=== PATIENT | female | born 1935 | race Caucasian/White ===

== ENCOUNTER 2018-09-13 09:11 | Emergency (ER) | payer MEDICARE, OTHER ==
[~2018-09-13] VITALS: Ht 152.4 cm; Wt 43.6 kg
[2018-09-13 09:45] LABS: BASOPHILS # (AUTO) 0.1 X10'3 (0-0.2); BASOPHILS % (AUTO) 0.6 % (0-1); EOSINOPHILS # (AUTO) 0.1 X10'3 (0-0.9); HEMATOCRIT 42.7 % (35.0-45.0); HEMOGLOBIN 14.1 g/dl (12.0-16.0); LYMPHOCYTES # (AUTO) 1.3 X10'3 (1.1-4.8); LYMPHOCYTES % (AUTO) 9.4 % (21-51); MEAN CORPUSCULAR HEMOGLOBIN 29.7 PG (27.0-31.0); MEAN PLATELET VOLUME 6.7 FL (7.4-10.4); MONOCYTES # (AUTO) 0.4 X10'3 (0-0.9); MONOCYTES % (AUTO) 2.7 % (2-12); NEUTROPHILS # (AUTO) 11.8 X10'3 (1.8-7.7); NEUTROPHILS % (AUTO) 86.3 % (42-75); PLATELET COUNT 361 X10'3 (140-440); RED BLOOD COUNT 4.74 X10'6 (4.20-5.60); RED CELL DISTRIBUTION WIDTH 14.1 % (11.5-14.5); WHITE BLOOD COUNT 13.6 X10'3 (4.5-11.0)
[2018-09-13 09:58] LABS: INR 0.9 INR; PROTHROMBIN TIME 9.6 SECONDS (9.0-12.0)
[2018-09-13 10:01] LABS: ALANINE AMINOTRANSFERASE 19 U/L (12-78); ALBUMIN 4.1 G/DL (3.4-5.0); ALBUMIN/GLOBULIN RATIO 1.1 (1.1-1.5); ALKALINE PHOSPHATASE 101 IU/L (46-116); ANION GAP 13 (8-16); ASPARTATE AMINO TRANSFERASE 16 U/L (10-37); BILIRUBIN,TOTAL 0.5 MG/DL (0.1-1.0); BLOOD UREA NITROGEN 16 MG/DL (7-18); BUN/CREATININE RATIO 18.4 (6.6-38.0); CALCIUM 10.5 MG/DL (8.5-10.1); CHLORIDE 96 MMOL/L (99-107); CREATININE 0.87 MG/DL (0.40-0.90); GLUCOSE 104 MG/DL (70-104); LIPASE 129 U/L (73-393); POTASSIUM 3.6 MMOL/L (3.5-5.1); SODIUM 135 MMOL/L (135-145); TOTAL CARBON DIOXIDE 26.4 MMOL/L (24-32); TOTAL PROTEIN 7.8 G/DL (6.4-8.2); eGFR 62 ML/MIN
[2018-09-13 11:00] LABS: CLARITY,URINE CLOUDY (Clear); COLOR,URINE YELLOW (Yellow); GLUCOSE, URINE NEGATIVE (Neg); KETONES,URINE TRACE mg/dl (Neg); LEUKOCYTE ESTERASE ,URINE SMALL (Neg); NITRITES, URINE POSITIVE (Neg); OCCULT BLOOD,URINE TRACE-LYSED (Neg); PROTEIN,URINE NEGATIVE (Neg); UROBILINOGEN,URINE 0.2 E.U/dL (0.2-1.0)
[2018-09-13 11:01] LABS: UA COLLECTION TYPE FOLEY CATH
[2018-09-13 11:06] LABS: BACTERIA,URINE 4+ /HPF (Neg); RBC,URINE 0-2 /HPF (0-2); SQUAMOUS EPITHELIAL CELL,UR FEW /LPF (FEW); WBC,URINE 50-100 /HPF (0-4)
[2018-09-13] MEDS ORDERED: ondansetron 4mg rapidly disintigrating tab PO ONE (11:15)
[2018-09-13] MEDS ORDERED: fentaNYL/PF 50MCG/1 ML 2ML syringe IV ONE ×2 (11:45→12:50)
[2018-09-13] MEDS ORDERED: CefTRIAXone/D5W-Rocephin 1gm 50 ML IV ONE (11:45)
[2018-09-13] MEDS ORDERED: normal saline 1000ML IV soln IVB ONE (11:45)
[2018-09-13] MEDS ORDERED: NITR100C6 PO (12:11)
[2018-09-13] MEDS ORDERED: iohexol 350MG/ML 100ml bottle IV ONE (13:32)
[2018-09-13] MEDS ORDERED: HYDR-4353 PO (14:51)
[2018-09-13 15:09] VITALS: BP 120/73
[2018-09-13] MEDS ORDERED: sucralfate 1gm/10ml UD suspension PO STA (15:18)
[2018-09-13] MEDS ORDERED: mag hydrox/Alum hydrox/simeth 30ml oral suspension PO ONE (15:20)
[2018-09-13] MEDS ORDERED: LIDOcaine Viscous 15ml cup PO ONE (15:20)
[2018-09-13] MEDS ORDERED: ondansetron/PF 4mg/2ml inj IV ONE (15:20)
[2018-09-13] MEDS ORDERED: SUCR1TAB34 PO (15:20)
== END 2018-09-13 16:06 | disposition home or self-care (01) ==
LOC: ER 09:12
DX: S32.038A Other fracture of third lumbar vertebra, initial encounter for closed fracture (principal); S22.088A Other fracture of T11-T12 vertebra, initial encounter for closed fracture; S32.018A Other fracture of first lumbar vertebra, initial encounter for closed fracture; N39.0 Urinary tract infection, site not specified; Z79.899 Other long term (current) drug therapy; X58.XXXA Exposure to other specified factors, initial encounter; Y93.89 Activity, other specified; Y92.89 Other specified places as the place of occurrence of the external cause; Y99.9 Unspecified external cause status
CPT/HCPCS: 36415; 71275; 72070; 74177; 80053; 81001; 83690; 85025; 85610; 87077; 87088; 87186; 96365; 96375; 96376; 99284; J0696; J3010; J7030; P9612; Q9967

== ENCOUNTER 2018-09-18 20:03 | Inpatient (IN) | payer MEDICARE, OTHER ==
[~2018-09-18] VITALS: Ht 151.1 cm; Wt 41.4 kg
[~2018-09-18 20:03] MED LIST: HYDR-4353 PO; NITR100C6 PO; SUCR1TAB34 PO
[2018-09-18] MEDS ORDERED: normal saline 1000ml 1,000 ML IV ONE (20:21)
[2018-09-18 20:57] LABS: BASOPHILS % (AUTO) 0.4 % (0-1); EOSINOPHILS # (AUTO) 0.1 X10'3 (0-0.9); EOSINOPHILS % (AUTO) 1.4 % (0-6); HEMATOCRIT 36.1 % (35.0-45.0); HEMOGLOBIN 12.2 g/dl (12.0-16.0); LYMPHOCYTES # (AUTO) 0.9 X10'3 (1.1-4.8); LYMPHOCYTES % (AUTO) 12.7 % (21-51); MEAN CORPUSCULAR HEMOGLOBIN 30.1 PG (27.0-31.0); MEAN CORPUSCULAR HGB CONC 33.8 % (33.0-36.5); MEAN CORPUSCULAR VOLUME 89.3 FL (78-98); MEAN PLATELET VOLUME 7.1 FL (7.4-10.4); MONOCYTES # (AUTO) 0.5 X10'3 (0-0.9); NEUTROPHILS # (AUTO) 5.8 X10'3 (1.8-7.7); NEUTROPHILS % (AUTO) 78.5 % (42-75); PLATELET COUNT 312 X10'3 (140-440); RED BLOOD COUNT 4.04 X10'6 (4.20-5.60); RED CELL DISTRIBUTION WIDTH 14.1 % (11.5-14.5); WHITE BLOOD COUNT 7.4 X10'3 (4.5-11.0)
[2018-09-18] MEDS ORDERED: temazepam 15mg capsule PO PRN (21:00)
[2018-09-18 21:03] LABS: ALANINE AMINOTRANSFERASE 18 U/L (12-78); ALBUMIN/GLOBULIN RATIO 0.9 (1.1-1.5); ALKALINE PHOSPHATASE 84 IU/L (46-116); ANION GAP 18 (8-16); ASPARTATE AMINO TRANSFERASE 21 U/L (10-37); BILIRUBIN,TOTAL 0.7 MG/DL (0.1-1.0); BLOOD UREA NITROGEN 9 MG/DL (7-18); BUN/CREATININE RATIO 14.8 (6.6-38.0); CALCIUM 8.6 MG/DL (8.5-10.1); CHLORIDE 99 MMOL/L (99-107); CREATININE 0.61 MG/DL (0.40-0.90); GLUCOSE 71 MG/DL (70-104); SODIUM 137 MMOL/L (135-145); TOTAL CARBON DIOXIDE 19.8 MMOL/L (24-32); TOTAL PROTEIN 6.2 G/DL (6.4-8.2); eGFR > 90 ML/MIN
[2018-09-18 21:04] LABS: POTASSIUM 2.8 MMOL/L (3.5-5.1)
[2018-09-18] MEDS ORDERED: potassium Cl 20mEq in NS 1,000 ML IV SCH (21:28)
[2018-09-18] MEDS ORDERED: potassium Cl 20 mEq SR tablet PO PRN (21:30)
[2018-09-18] MEDS ORDERED: diphenhydrAMINE 25mg capsule PO PRN (21:30)
[2018-09-18] MEDS ORDERED: acetaminophen 325mg tablet PO PRN ×2 (21:30)
[2018-09-18] MEDS ORDERED: magnesium hydroxide 30ml (MOM) UD suspension PO PRN (21:30)
[2018-09-18] MEDS ORDERED: mag hydrox/Alum hydrox/simeth 30ml oral suspension PO PRN (21:30)
[2018-09-18] MEDS ORDERED: HYDROcodone/acetaminophen 10/325mg tab PO PRN (21:30)
[2018-09-18] MEDS ORDERED: diphenhydrAMINE 50 mg/ml inj IV PRN (21:30)
[2018-09-18] MEDS ORDERED: bisacodyl 10mg suppository rectal RC PRN (21:30)
[2018-09-18] MEDS ORDERED: sevoflurane 250ml liquid IH ONE (21:50)
[2018-09-18 21:51] LABS: HEMOGLOBIN A1C 5.5 % (4.5-6.2)
[2018-09-18] MEDS ORDERED: fentaNYL/PF 50MCG/1 ML 2ML syringe ONE (21:51)
[2018-09-18] MEDS ORDERED: midazolam 2 mg/2 ml injection ONE (21:54)
[2018-09-18 22:05] LABS: CREATINE KINASE 211 U/L (26-192); LIPASE 209 U/L (73-393); MAGNESIUM 1.6 MG/DL (1.5-2.4); PHOSPHORUS 2.7 MG/DL (2.3-4.5); TROPONIN I < 0.04 NG/ML (0.0-0.05)
[2018-09-18] MEDS ORDERED: ketamine 50mg/5ml syringe ONE (22:06)
[2018-09-18] MEDS ORDERED: ceFOXitin 1000 MG inj ONE (22:14)
[2018-09-18 23:00] VITALS: BP 123/56
--- NOTE | 2018-09-18 23:00 | NUR ---
Received from OR via , accompanied by Anesthesiologist DR MOJICA and report given by Anesthesiolgist. PATIENT IS AWAKE, ALERT, MOVES EXT X 4, TEMP WAS 35.8. PLACED WARM BLANKETS AND GOWN WARMER ON PATIENT. SCD'S, ISLAND DRESSING TO ABD CD, PIV RIGHT AC 20G, LOMAS TO GRAVITY WITH CLEAR YELLOW URINE. MORPHINE GIVEN FOR PAIN CONTROL.
[2018-09-18] MEDS ORDERED: ringers solution, lacted 1,000 ML IV SCH (23:02)
[2018-09-18] MEDS: ondansetron/PF 4mg/2ml inj IV PRN (23:04)
[2018-09-18] MEDS ORDERED: ondansetron/PF 4mg/2ml inj IV PRN (23:05)
[2018-09-18] MEDS ORDERED: HYDROmorphone 1 mg/ml syringe IV PRN (23:05)
[2018-09-18] MEDS ORDERED: morphine 4 MG/ML inj SYRINge IV PRN (23:05)
[2018-09-18] MEDS: morphine 2 MG/ML inj. syringe IV PRN ×2 (23:05→23:13)
[2018-09-18 23:10] VITALS: BP 125/69
[2018-09-18 23:20] VITALS: BP 99/41
[2018-09-18 23:30] VITALS: BP 87/46
[2018-09-18] MEDS ORDERED: glycopyrrolate 0.2mg/ml inj ONE (23:31)
[2018-09-18] MEDS ORDERED: rocuronium 10mg/ml inj IV ONE (23:31)
[2018-09-18] MEDS ORDERED: ondansetron/PF 4mg/2ml inj ONE (23:31)
[2018-09-18] MEDS ORDERED: LIDOcaine 1%/PF 5ML 10 MG/ML VIAL ONE (23:31)
[2018-09-18] MEDS ORDERED: succinylcholine 20mg/ml inj IV ONE (23:31)
[2018-09-18] MEDS ORDERED: neostigmine methylsulfate 1 MG/ML 10ml vial ONE (23:31)
--- NOTE | 2018-09-18 23:36 | NUR ---
ISAIAH COMPLETED PER DR MOJICA ORDER. RESULTED AND NO NEW ORDERS RECEIVED.
[2018-09-18 23:40] VITALS: BP 101/47
[2018-09-18 23:41] LABS: ISTAT ANION GAP 16 (8-12); ISTAT BUN 6 mg/dL (6-19); ISTAT CL 99 mmol/L (99-107); ISTAT CREATININE 0.4 mg/dL (0.6-1.1); ISTAT GLUCOSE 100 mg/dL (70-104); ISTAT HGB 11.2 g/dl (12.0-16.0); ISTAT Hct 33 %PCV (35-48); ISTAT IONIZED CALCIUM 1.15 mmol/L (1.03-1.32); ISTAT NA 135 mmol/L (135-145); ISTAT TOTAL CO2 20 mmol/L (24-32); ISTAT eGFR > 90 ML/MIN
[2018-09-18] MEDS: HYDROmorphone 1 mg/ml syringe IV PRN (23:49)
[2018-09-18 23:50] VITALS: BP 105/54
[2018-09-19] VITALS (14 sets, daily range): BP systolic 108–139; BP diastolic 46–86
[2018-09-19] MEDS: HYDROmorphone 1 mg/ml syringe IV PRN ×3 (00:01→04:32)
--- NOTE | 2018-09-19 00:10 | NUR ---
Report called to receiving nurse. Transferred via BED Belongings . Special Issues communicated to receiving nurse ANA RINALDI. PT IS RESTING QUIETLY AFTER 2 DOSES OF DILAUDID, VSS, ABD DRESSING SHADOWED IN RED DRAINAGE, TELE NOTIFIED OF PT GARCIA TO 4022B, SCDS, PIV PATENT, LOMAS EMPTIED AND TO GRAVITY, REDDENED BRUISE-LIKE AREAS AROUND BILAT BREAST TISSUE (DR CAMPBELL SPECUATES POSSIBLE BREAST CANCER) ASHISH ICE CHIPS, UPON ARRIVAL TO 4022B PT WAS SET UP ON O2, SCD'S AND SURGICAL SITE WAS ASSESSED WITH RECEIVING RN.
--- NOTE | 2018-09-19 00:30 | NUR ---
Patient brought to room. Moaning in pain. Call light given and post op VS initiated. Cont pulse ox and tele [address] VS WNL. Recovery nurse stated that patient had had a drop in BP after morphine administration. Called pharm for bag of K+, as patient still has K+ of 3.0.
[2018-09-19] MEDS ORDERED: potassium Cl 40MEQ/NS 500ml 500 ML IV PRN ×2 (00:45)
[2018-09-19] MEDS: Potassium Cl inj 20 MEQ in normal saline 1000ml 990 ML IV SCH ×3 (01:00→17:45)
[2018-09-19] MEDS: nicotine 21mg patch - 24 hr TD SCH ×2 (01:13→08:00)
--- NOTE | 2018-09-19 01:30 | NUR ---
Called Dr Hobbs and notified him that patient was still in 10/10 pain. I explained that her BP had dropped with the morphine - he ordered albumin (PRN) if BP drops below 100/60. He increased the admin time for dilaudid from 4 hours to 2 hours.
[2018-09-19] MEDS ORDERED: albumin (human) 25% 100ml IV 100 ML IV PRN (01:35)
[2018-09-19] MEDS ORDERED: HYDROmorphone 1 mg/ml syringe IV PRN (01:35)
[2018-09-19 06:04] LABS: BASOPHILS % (AUTO) 0 % (0-1); EOSINOPHILS % (AUTO) 0 % (0-6); HEMOGLOBIN 12.8 g/dl (12.0-16.0); LYMPHOCYTES # (AUTO) 0.3 X10'3 (1.1-4.8); LYMPHOCYTES % (AUTO) 1.6 % (21-51); MEAN CORPUSCULAR HEMOGLOBIN 29.7 PG (27.0-31.0); MEAN CORPUSCULAR HGB CONC 32.8 % (33.0-36.5); MEAN CORPUSCULAR VOLUME 90.4 FL (78-98); MEAN PLATELET VOLUME 7.4 FL (7.4-10.4); MONOCYTES # (AUTO) 0.5 X10'3 (0-0.9); MONOCYTES % (AUTO) 3.1 % (2-12); NEUTROPHILS # (AUTO) 16.1 X10'3 (1.8-7.7); NEUTROPHILS % (AUTO) 95.3 % (42-75); PLATELET COUNT 372 X10'3 (140-440); RED BLOOD COUNT 4.31 X10'6 (4.20-5.60); RED CELL DISTRIBUTION WIDTH 13.9 % (11.5-14.5); WHITE BLOOD COUNT 16.9 X10'3 (4.5-11.0)
--- NOTE | 2018-09-19 06:10 | NUR ---
Patient in room ORTHO 4022. I have received report from Mora Edward RN and had the opportunity to ask questions and assume patient care.
[2018-09-19 06:33] LABS: ALANINE AMINOTRANSFERASE 20 U/L (12-78); ALBUMIN 2.9 G/DL (3.4-5.0); ALBUMIN/GLOBULIN RATIO 0.9 (1.1-1.5); ALKALINE PHOSPHATASE 83 IU/L (46-116); ANION GAP 16 (8-16); ASPARTATE AMINO TRANSFERASE 27 U/L (10-37); BILIRUBIN,TOTAL 0.8 MG/DL (0.1-1.0); BLOOD UREA NITROGEN 8 MG/DL (7-18); BUN/CREATININE RATIO 12.9 (6.6-38.0); CALCIUM 8.8 MG/DL (8.5-10.1); CHLORIDE 101 MMOL/L (99-107); CREATININE 0.62 MG/DL (0.40-0.90); GLUCOSE 103 MG/DL (70-104); SODIUM 136 MMOL/L (135-145); TOTAL CARBON DIOXIDE 19.1 MMOL/L (24-32); TOTAL PROTEIN 6.2 G/DL (6.4-8.2); eGFR > 90 ML/MIN
--- NOTE | 2018-09-19 06:33 | NUR ---
Problems reprioritized. Patient report given, questions answered & plan of care reviewed with NIMCO Norwood.
[2018-09-19 06:39] LABS: PARTIAL THROMBOPLASTIN TIME 27 SECONDS (22-32); PROTHROMBIN TIME 10.1 SECONDS (9.0-12.0)
[2018-09-19] MEDS: K and/or MAG REPLACEMENT MC SCH (08:00)
[2018-09-19] MEDS: docusate sod 100mg capsule PO SCH ×2 (08:00→19:31)
[2018-09-19] MEDS: pantoprazole 40 MG vial IV SCH ×2 (08:08→19:33)
[2018-09-19] MEDS: methylPREDNISolone sod succ/PF 40mg inj. IV SCH ×2 (08:09→19:33)
--- NOTE | 2018-09-19 15:08 | NUR ---
Per Dr. Vu, requested a call to Dr. Mims to confirm the start date of DVT prophylaxis, (heparin), either today or tomorrow. Called to 's cell phone. No answer, unable to leave message. Called office, was advised he was in surgery and to try again later.
--- NOTE | 2018-09-19 16:54 | NUR ---
PAGER ID: [phone] MESSAGE: Enma Butler Dr. on ortho, pt in room 4022B, Ms. Jones, Dr. Mims let me know they found breast cancer during her abdominal surgery and asked me to let you know. Thank you
--- NOTE | 2018-09-19 16:56 | NUR ---
BARBARA FROM [facility] PT DARTED. PT WANTS NO CHEST COMPRESSIONS, BUT SHE IS A FULL CODE. ON TELE 10. 20 GAUGE IN RAC WITH N/S 20K @ 100. F/C IN PLACED IN [place].
--- NOTE | 2018-09-19 17:01 | NUR ---
Problems reprioritized. Patient report given, questions answered & plan of care reviewed with Jannet RINALDI on surgical.
--- NOTE | 2018-09-19 17:41 | NUR ---
ORTHO CALLED, THEY ARE BRINGING PT DOWN IN A FEW MINUTES
--- NOTE | 2018-09-19 18:00 | NUR ---
Brought pt down to surgical and transferred care to receiving RN. Settled pt into new bed, provided updates to RN. Pt has no concerns at this time
--- NOTE | 2018-09-19 18:33 | NUR ---
Received report from Jannet RINALDI, pt just arrived on the floor, oriented pt to call light.
[2018-09-19] MEDS: heparin, porcine 5000 units/ml vial SQ SCH (19:33)
[2018-09-20 00:10] VITALS: BP 134/62
[2018-09-20] MEDS: Potassium Cl inj 20 MEQ in normal saline 1000ml 990 ML IV SCH ×3 (03:36→22:52)
[2018-09-20 04:17] LABS: ALANINE AMINOTRANSFERASE 23 U/L (12-78); ALBUMIN 2.4 G/DL (3.4-5.0); ALBUMIN/GLOBULIN RATIO 0.7 (1.1-1.5); ALKALINE PHOSPHATASE 73 IU/L (46-116); ANION GAP 15 (8-16); ASPARTATE AMINO TRANSFERASE 32 U/L (10-37); BILIRUBIN,TOTAL 0.5 MG/DL (0.1-1.0); BLOOD UREA NITROGEN 8 MG/DL (7-18); BUN/CREATININE RATIO 12.9 (6.6-38.0); CALCIUM 8.6 MG/DL (8.5-10.1); CHLORIDE 101 MMOL/L (99-107); CREATININE 0.62 MG/DL (0.40-0.90); GLUCOSE 104 MG/DL (70-104); POTASSIUM 4.5 MMOL/L (3.5-5.1); SODIUM 135 MMOL/L (135-145); TOTAL CARBON DIOXIDE 19.2 MMOL/L (24-32); TOTAL PROTEIN 5.8 G/DL (6.4-8.2); eGFR > 90 ML/MIN
[2018-09-20 04:35] LABS: BASOPHILS % (AUTO) 0 % (0-1); EOSINOPHILS # (AUTO) 0.1 X10'3 (0-0.9); EOSINOPHILS % (AUTO) 1.5 % (0-6); HEMATOCRIT 35.9 % (35.0-45.0); HEMOGLOBIN 11.7 g/dl (12.0-16.0); LYMPHOCYTES # (AUTO) 0.4 X10'3 (1.1-4.8); LYMPHOCYTES % (AUTO) 4.2 % (21-51); MEAN CORPUSCULAR HEMOGLOBIN 29.5 PG (27.0-31.0); MEAN CORPUSCULAR HGB CONC 32.7 % (33.0-36.5); MEAN CORPUSCULAR VOLUME 90.3 FL (78-98); MEAN PLATELET VOLUME 7.2 FL (7.4-10.4); MONOCYTES # (AUTO) 0.4 X10'3 (0-0.9); MONOCYTES % (AUTO) 3.9 % (2-12); NEUTROPHILS # (AUTO) 9.1 X10'3 (1.8-7.7); NEUTROPHILS % (AUTO) 90.4 % (42-75); PLATELET COUNT 364 X10'3 (140-440); RED BLOOD COUNT 3.97 X10'6 (4.20-5.60); RED CELL DISTRIBUTION WIDTH 14.1 % (11.5-14.5)
[2018-09-20] MEDS: morphine 2 MG/ML inj. syringe IV PRN ×2 (05:30→13:00)
--- NOTE | 2018-09-20 06:26 | NUR ---
Problems reprioritized. Patient report given, questions answered & plan of care reviewed with Gail RINALDI.
[2018-09-20 07:00] VITALS: BP 139/59
[2018-09-20] MEDS: K and/or MAG REPLACEMENT MC SCH (08:00)
[2018-09-20] MEDS: docusate sod 100mg capsule PO SCH ×2 (08:00→19:42)
[2018-09-20] MEDS: nicotine 21mg patch - 24 hr TD SCH (08:00)
[2018-09-20] MEDS: methylPREDNISolone sod succ/PF 40mg inj. IV SCH ×2 (08:08→19:42)
[2018-09-20] MEDS: heparin, porcine 5000 units/ml vial SQ SCH ×2 (08:08→19:42)
[2018-09-20] MEDS: pantoprazole 40 MG vial IV SCH ×2 (08:09→19:42)
[2018-09-20 11:00] VITALS: BP 120/49
--- NOTE | 2018-09-20 18:27 | NUR ---
Problems reprioritized. Patient report given, questions answered & plan of care reviewed with NIMCO Baez.
[2018-09-20 18:45] VITALS: BP 128/65
--- NOTE | 2018-09-20 18:49 | NUR ---
Patient in room SELIN 346. I have received report from Gail RINALDI and had the opportunity to ask questions and assume patient care.
[2018-09-20] MEDS: ondansetron/PF 4mg/2ml inj IV PRN (22:54)
[2018-09-21] VITALS: BP 121/52
--- NOTE | 2018-09-21 02:19 | NUR ---
pt states " I have a pressure in my stomach from the pill I was given earlier and I have just been getting sicker not better." i discussed pt major surgery and that getting up and walking will help wakeup her bowels after surgery and could help relieve that pressure because it may be due to gas. pt states " I was walking before I came in here and a couple of days ago but since they removed my tinajero catheter I have had to pee nonstop and can't leave the bed rueda to go walk." I explained to the pt that she was getting fluids through her IV to help keep her hydrated because shes not taking in a lot of fluid by mouth. pt then " stated she understood but that she will no longer take pill by mouth because she thinks they are making her sicker and that she will only take things through her IV."
[2018-09-21 05:14] LABS: BASOPHILS % (AUTO) 0.3 % (0-1); EOSINOPHILS % (AUTO) 0.4 % (0-6); HEMATOCRIT 33.8 % (35.0-45.0); HEMOGLOBIN 11.4 g/dl (12.0-16.0); LYMPHOCYTES # (AUTO) 0.5 X10'3 (1.1-4.8); LYMPHOCYTES % (AUTO) 5.4 % (21-51); MEAN CORPUSCULAR HEMOGLOBIN 30.1 PG (27.0-31.0); MEAN CORPUSCULAR HGB CONC 33.8 % (33.0-36.5); MEAN CORPUSCULAR VOLUME 89.2 FL (78-98); MEAN PLATELET VOLUME 7.8 FL (7.4-10.4); MONOCYTES # (AUTO) 0.4 X10'3 (0-0.9); MONOCYTES % (AUTO) 4.3 % (2-12); NEUTROPHILS # (AUTO) 7.8 X10'3 (1.8-7.7); NEUTROPHILS % (AUTO) 89.6 % (42-75); PLATELET COUNT 353 X10'3 (140-440); RED BLOOD COUNT 3.79 X10'6 (4.20-5.60); WHITE BLOOD COUNT 8.7 X10'3 (4.5-11.0)
[2018-09-21 05:32] LABS: ALANINE AMINOTRANSFERASE 26 U/L (12-78); ALBUMIN 2.4 G/DL (3.4-5.0); ALBUMIN/GLOBULIN RATIO 0.7 (1.1-1.5); ALKALINE PHOSPHATASE 63 IU/L (46-116); ANION GAP 9 (8-16); ASPARTATE AMINO TRANSFERASE 22 U/L (10-37); BILIRUBIN,TOTAL 0.4 MG/DL (0.1-1.0); BLOOD UREA NITROGEN 10 MG/DL (7-18); BUN/CREATININE RATIO 16.4 (6.6-38.0); CALCIUM 8.4 MG/DL (8.5-10.1); CHLORIDE 102 MMOL/L (99-107); CREATININE 0.61 MG/DL (0.40-0.90); GLUCOSE 107 MG/DL (70-104); SODIUM 136 MMOL/L (135-145); TOTAL CARBON DIOXIDE 25.4 MMOL/L (24-32); TOTAL PROTEIN 5.7 G/DL (6.4-8.2); eGFR > 90 ML/MIN
--- NOTE | 2018-09-21 06:26 | NUR ---
Problems reprioritized. Patient report given, questions answered & plan of care reviewed with Keya RINALDI.
--- NOTE | 2018-09-21 06:30 | NUR ---
Patient in room SELIN 346. I have received report from NMICO Baez and had the opportunity to ask questions and assume patient care.
[2018-09-21 08:00] VITALS: BP 140/65
[2018-09-21] MEDS: nicotine 21mg patch - 24 hr TD SCH (08:00)
[2018-09-21] MEDS: K and/or MAG REPLACEMENT MC SCH (08:00)
[2018-09-21] MEDS: docusate sod 100mg capsule PO SCH ×2 (08:00→21:36)
[2018-09-21] MEDS: Potassium Cl inj 20 MEQ in normal saline 1000ml 990 ML IV SCH (08:58)
[2018-09-21] MEDS: heparin, porcine 5000 units/ml vial SQ SCH ×2 (09:06→21:44)
[2018-09-21] MEDS: pantoprazole 40 MG vial IV SCH ×2 (09:07→21:32)
[2018-09-21] MEDS: methylPREDNISolone sod succ/PF 40mg inj. IV SCH ×2 (09:07→21:32)
[2018-09-21 12:06] VITALS: BP 155/57
--- NOTE | 2018-09-21 15:23 | NUR ---
Pascale consult: per physical assessment pt A/O x 3 and confused. Pt currently on full liquid diet with 100% intake of starch/soup. Pt with no documented edema or significant decrease in muscle strength. Pt currently does not meet criteria for malnutrition. Will f/u once pt more A/O with diet advancement and monitor potential for qualifying criteria. Addendum: 09/21/18 at [address] Amended: Links added.
--- NOTE | 2018-09-21 18:44 | NUR ---
Problems reprioritized. Patient report given, questions answered & plan of care reviewed with NIMCO Johnson.
[2018-09-21 19:00] VITALS: BP 124/55
[2018-09-22] VITALS: BP 104/52
[2018-09-22 05:15] LABS: BASOPHILS # (AUTO) 0.1 X10'3 (0-0.2); BASOPHILS % (AUTO) 0.7 % (0-1); EOSINOPHILS % (AUTO) 0 % (0-6); HEMATOCRIT 36.4 % (35.0-45.0); HEMOGLOBIN 12.1 g/dl (12.0-16.0); LYMPHOCYTES # (AUTO) 0.5 X10'3 (1.1-4.8); MEAN CORPUSCULAR HEMOGLOBIN 29.8 PG (27.0-31.0); MEAN CORPUSCULAR HGB CONC 33.2 % (33.0-36.5); MEAN CORPUSCULAR VOLUME 89.6 FL (78-98); MEAN PLATELET VOLUME 7.9 FL (7.4-10.4); MONOCYTES # (AUTO) 0.2 X10'3 (0-0.9); NEUTROPHILS # (AUTO) 6.7 X10'3 (1.8-7.7); NEUTROPHILS % (AUTO) 89.3 % (42-75); PLATELET COUNT 395 X10'3 (140-440); RED BLOOD COUNT 4.06 X10'6 (4.20-5.60); WHITE BLOOD COUNT 7.5 X10'3 (4.5-11.0)
[2018-09-22 05:37] LABS: ALANINE AMINOTRANSFERASE 28 U/L (12-78); ALBUMIN 2.6 G/DL (3.4-5.0); ALBUMIN/GLOBULIN RATIO 0.8 (1.1-1.5); ALKALINE PHOSPHATASE 72 IU/L (46-116); ANION GAP 10 (8-16); ASPARTATE AMINO TRANSFERASE 20 U/L (10-37); BILIRUBIN,TOTAL 0.4 MG/DL (0.1-1.0); BLOOD UREA NITROGEN 10 MG/DL (7-18); CALCIUM 8.8 MG/DL (8.5-10.1); CHLORIDE 101 MMOL/L (99-107); GLUCOSE 116 MG/DL (70-104); SODIUM 138 MMOL/L (135-145); TOTAL PROTEIN 5.9 G/DL (6.4-8.2); eGFR > 90 ML/MIN
--- NOTE | 2018-09-22 06:34 | NUR ---
Problems reprioritized. Patient report given, questions answered & plan of care reviewed with Gail RINALDI. Addendum: 09/22/18 at 0634 by Elizabeth Wilcox RN Amended: Links added.
--- NOTE | 2018-09-22 06:47 | NUR ---
Patient in room SELIN 346. I have received report from NIMCO Johnson and had the opportunity to ask questions and assume patient care.
[2018-09-22 07:00] VITALS: BP_SYST 152
[2018-09-22] MEDS: nicotine 21mg patch - 24 hr TD SCH (08:00)
[2018-09-22] MEDS: K and/or MAG REPLACEMENT MC SCH (08:00)
[2018-09-22] MEDS: docusate sod 100mg capsule PO SCH ×2 (09:13→20:00)
[2018-09-22] MEDS: heparin, porcine 5000 units/ml vial SQ SCH ×2 (09:13→20:38)
[2018-09-22] MEDS: pantoprazole 40 MG vial IV SCH (09:13)
[2018-09-22] MEDS: methylPREDNISolone sod succ/PF 40mg inj. IV SCH ×2 (09:14→20:37)
[2018-09-22 11:00] VITALS: BP 147/76
--- NOTE | 2018-09-22 18:00 | NUR ---
Problems reprioritized. Patient report given, questions answered & plan of care reviewed with NIMCO Griggs.
--- NOTE | 2018-09-22 18:30 | NUR ---
Patient in room SELIN 346. I have received report from MADELEINE RINALDI and had the opportunity to ask questions and assume patient care.
[2018-09-22 20:00] VITALS: BP 106/71
[2018-09-22] MEDS: pantoprazole 40mg Tablet.DR PO SCH (20:00)
--- NOTE | 2018-09-22 22:01 | NUR ---
NOTED THAT PATIENT HAS NO MRSA SWAB TAKEN. TRIED TO NASAL SWAB PATIENT BUT BECAME AGITATED REFUSING THE NASAL SWAB.
[2018-09-23] VITALS: BP 117/58
[2018-09-23 04:56] LABS: BASOPHILS # (AUTO) 0.1 X10'3 (0-0.2); BASOPHILS % (AUTO) 2.1 % (0-1); EOSINOPHILS % (AUTO) 0.3 % (0-6); HEMATOCRIT 35.7 % (35.0-45.0); HEMOGLOBIN 11.8 g/dl (12.0-16.0); LYMPHOCYTES # (AUTO) 0.7 X10'3 (1.1-4.8); LYMPHOCYTES % (AUTO) 11.5 % (21-51); MEAN CORPUSCULAR HEMOGLOBIN 29.7 PG (27.0-31.0); MEAN CORPUSCULAR HGB CONC 33.1 % (33.0-36.5); MEAN CORPUSCULAR VOLUME 89.7 FL (78-98); MONOCYTES # (AUTO) 0.4 X10'3 (0-0.9); MONOCYTES % (AUTO) 5.6 % (2-12); NEUTROPHILS % (AUTO) 80.5 % (42-75); PLATELET COUNT 393 X10'3 (140-440); RED BLOOD COUNT 3.98 X10'6 (4.20-5.60); RED CELL DISTRIBUTION WIDTH 13.6 % (11.5-14.5); WHITE BLOOD COUNT 6.3 X10'3 (4.5-11.0)
[2018-09-23 05:16] LABS: ALANINE AMINOTRANSFERASE 27 U/L (12-78); ALBUMIN 2.6 G/DL (3.4-5.0); ALBUMIN/GLOBULIN RATIO 0.9 (1.1-1.5); ALKALINE PHOSPHATASE 71 IU/L (46-116); ANION GAP 9 (8-16); ASPARTATE AMINO TRANSFERASE 15 U/L (10-37); BILIRUBIN,TOTAL 0.4 MG/DL (0.1-1.0); BLOOD UREA NITROGEN 11 MG/DL (7-18); BUN/CREATININE RATIO 22.9 (6.6-38.0); CALCIUM 8.6 MG/DL (8.5-10.1); CHLORIDE 101 MMOL/L (99-107); CREATININE 0.48 MG/DL (0.40-0.90); GLUCOSE 118 MG/DL (70-104); POTASSIUM 3.5 MMOL/L (3.5-5.1); SODIUM 138 MMOL/L (135-145); TOTAL CARBON DIOXIDE 28.3 MMOL/L (24-32); TOTAL PROTEIN 5.6 G/DL (6.4-8.2); eGFR > 90 ML/MIN
--- NOTE | 2018-09-23 06:29 | NUR ---
Problems reprioritized. Patient report given, questions answered & plan of care reviewed with EVELYN RINALDI.
--- NOTE | 2018-09-23 06:37 | NUR ---
Patient in room SELIN 346. I have received report from Palmira Chavis RN and had the opportunity to ask questions and assume patient care.
[2018-09-23 07:06] VITALS: BP 121/55
[2018-09-23] MEDS: K and/or MAG REPLACEMENT MC SCH (07:12)
[2018-09-23] MEDS: nicotine 21mg patch - 24 hr TD SCH (08:00)
[2018-09-23] MEDS: docusate sod 100mg capsule PO SCH ×2 (08:00→20:00)
[2018-09-23] MEDS: pantoprazole 40mg Tablet.DR PO SCH ×2 (08:00→20:00)
[2018-09-23] MEDS: heparin, porcine 5000 units/ml vial SQ SCH ×3 (09:15→22:21)
[2018-09-23] MEDS: methylPREDNISolone sod succ/PF 40mg inj. IV SCH (09:15)
[2018-09-23 11:19] VITALS: BP 115/61
--- NOTE | 2018-09-23 18:17 | NUR ---
Problems reprioritized. Patient report given, questions answered & plan of care reviewed with Palmira Chavis RN.
--- NOTE | 2018-09-23 18:30 | NUR ---
Patient in room SELIN 346. I have received report from EVELYN RINALDI and had the opportunity to ask questions and assume patient care.
[2018-09-23 20:00] VITALS: BP 98/55
[2018-09-24 06:20] VITALS: BP 121/50
--- NOTE | 2018-09-24 06:21 | NUR ---
Problems reprioritized. Patient report given, questions answered & plan of care reviewed with EVELYN RINALDI.
[2018-09-24 07:44] VITALS: BP 109/53
[2018-09-24] MEDS: pantoprazole 40mg Tablet.DR PO SCH ×2 (08:00→20:00)
[2018-09-24] MEDS: K and/or MAG REPLACEMENT MC SCH (08:00)
[2018-09-24] MEDS: nicotine 21mg patch - 24 hr TD SCH (08:00)
[2018-09-24] MEDS: docusate sod 100mg capsule PO SCH ×2 (08:00→20:00)
[2018-09-24] MEDS: heparin, porcine 5000 units/ml vial SQ SCH ×2 (09:22→21:38)
[2018-09-24 12:00] VITALS: BP 92/65
--- NOTE | 2018-09-24 16:00 | NUR ---
Pt. refused MRSA screening
--- NOTE | 2018-09-24 18:34 | NUR ---
Problems reprioritized. Patient report given, questions answered & plan of care reviewed with Palmira Chavis RN.
--- NOTE | 2018-09-24 18:35 | NUR ---
Patient in room SELIN 346. I have received report from EVELYN RINALDI and had the opportunity to ask questions and assume patient care.
[2018-09-24 20:00] VITALS: BP 126/55
[2018-09-25] VITALS: BP 120/57
--- NOTE | 2018-09-25 06:55 | NUR ---
Patient in room SELIN 346. I have received report from Palmira Chavis RN and had the opportunity to ask questions and assume patient care.
[2018-09-25 07:00] VITALS: BP 123/52
--- NOTE | 2018-09-25 07:03 | NUR ---
Problems reprioritized. Patient report given, questions answered & plan of care reviewed with JOSHUA RINALDI.
[2018-09-25] MEDS: K and/or MAG REPLACEMENT MC SCH (08:00)
[2018-09-25] MEDS: docusate sod 100mg capsule PO SCH (08:00)
[2018-09-25] MEDS: nicotine 21mg patch - 24 hr TD SCH (08:00)
[2018-09-25] MEDS: pantoprazole 40mg Tablet.DR PO SCH (08:00)
--- NOTE | 2018-09-25 09:04 | NUR ---
Patient in room SELIN 346. I have received report from Shelly RINALDI and had the opportunity to ask questions and assume patient care.
[2018-09-25] MEDS: heparin, porcine 5000 units/ml vial SQ SCH (09:31)
--- NOTE | 2018-09-25 09:59 | NUR ---
Problems reprioritized. Patient report given, questions answered & plan of care reviewed with NIMCO Pacheco.
[2018-09-25] MEDS ORDERED: HYDR-4383 PO (10:55)
[2018-09-25 11:00] VITALS: BP 123/48
--- NOTE | 2018-09-25 15:26 | NUR ---
patient seen by DR Aden and DR Jimenez is for discharge. son called in [place]. patient appears stable. DC home 1530hrs, All instructions given to katherine Harrington , and prescription for [place]. DC home via private car 1530hrs.
== END 2018-09-25 15:39 | disposition home or self-care (01) | DRG 353 ==
LOC: ER 20:05 → ORTHO 4S 21:28 → SUR 3N 09-19 17:50
PROVIDERS: ADMIT Family Medicine; ATTEND Family Medicine
PROC: 0W9J0ZZ Drainage of Pelvic Cavity, Open Approach (ICD-10-PCS; 2018-09-18)
PROC: 0WQF0ZZ Repair Abdominal Wall, Open Approach (ICD-10-PCS; principal; 2018-09-18 21:50)
DX: K45.0 Other specified abdominal hernia with obstruction, without gangrene (principal); E43 Unspecified severe protein-calorie malnutrition; J44.1 Chronic obstructive pulmonary disease with (acute) exacerbation; Z68.1 Body mass index [BMI] 19.9 or less, adult; E87.2 Acidosis; M48.55XA Collapsed vertebra, not elsewhere classified, thoracolumbar region, initial encounter for fracture; E86.0 Dehydration; E87.6 Hypokalemia; K21.9 Gastro-esophageal reflux disease without esophagitis; N63.0 Unspecified lump in unspecified breast; N64.51 Induration of breast; N94.89 Other specified conditions associated with female genital organs and menstrual cycle; R09.02 Hypoxemia; F17.209 Nicotine dependence, unspecified, with unspecified nicotine-induced disorders; Z79.899 Other long term (current) drug therapy
CPT/HCPCS: 36415; 80047; 80053; 82550; 83036; 83690; 83735; 83880; 84100; 84443; 84484; 85025; 85610; 85730; 86885; 86900; 86901; 94760; 97116; 97162; 99285; A7000; C9113; G0378; J0330; J0694; J1170; J1644; J2001; J2250; J2270; J2405; J2710; J2920; J3010; J3480; J3490; J7030; J7120